=== PATIENT | female | born 1985 | race American Indian/Alaskan Native ===

== ENCOUNTER 2016-09-22 09:51 | Emergency (ER) | payer OTHER ==
[2016-09-22 09:57] VITALS: BP 126/88
[2016-09-22] MEDS ORDERED: FLEXERIL PO ONE (10:28)
[2016-09-22] MEDS ORDERED: NORCO 5/325 PO ONE (10:28)
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
== END 2016-09-22 12:35 | disposition home or self-care (01) ==
LOC: ED 09:51
DX: M54.2 Cervicalgia (principal); M54.5 Low back pain; V89.2XXA Person injured in unspecified motor-vehicle accident, traffic, initial encounter; Y93.89 Activity, other specified; Y99.9 Unspecified external cause status; Y92.410 Unspecified street and highway as the place of occurrence of the external cause
CPT/HCPCS: 72125; 72128; 72131